=== PATIENT | female | born 1950 | race Caucasian/White ===

== ENCOUNTER 2019-04-13 07:45 | Emergency (ER) | payer MEDICARE, OTHER ==
[~2019-04-13] VITALS: Ht 160 cm; Wt 75.0 kg
[~2019-04-13 07:45] MED LIST: IBUP-1542 PO
[2019-04-13 07:48] VITALS: Ht 160 cm; Wt 75.0 kg
[2019-04-13] MEDS ORDERED: ACETAMINOPHEN 500 MG TAB PO STA (08:10)
--- NOTE | 2019-04-13 11:22 | ERD ---
ER Documentation Chief Complaint Chief Complaint right knee pain since yesterday HPI Patient is a 68-year-old female, past medical history of hypertension, pre-DM, hyperlipidemia, presents the ER for concerns of right knee pain x1 day. Patient states she was walking when she twisted her leg at her house while attempting to turn off the light. Patient states she is been unable to bear weight to the affected extremity since that time. Patient denies any previous fractures or dislocations. Patient denies fevers or chills. ROS All systems reviewed and are negative except as per history of present illness. Medications Home Meds Active Scripts Ibuprofen* (Motrin*) 600 Mg Tab, 600 MG PO Q6, #30 TAB Prov:JESUS AMOS PA-C 04/13/19 PMhx/Soc Hx Respiratory Disorders: No Hx Psychiatric Problems: No Hx Alcohol Use: No Hx Substance Use: No Hx Tobacco Use: No FmHx Family History: No diabetes Physical Exam Vitals Vital Signs Date Temp Pulse Resp B/P (MAP) Pulse Ox O2 O2 Flow FiO2 Time Delivery Rate 04/13/19 98.6 76 18 149/85 98 07:48 (106) Physical Exam GENERAL: Well-developed, well-nourished female. Appears in no acute distress. HEAD: Normocephalic, atraumatic. EYES: Pupils are equally reactive bilaterally. EOMs grossly intact. No conjunctival erythema. NECK: Supple. No meningismus. Normal range of motion of the neck. LUNG: Clear to auscultation bilaterally. No rhonchi, wheezing, rales or coarse breath sounds. HEART: Regular rate and rhythm. No murmurs, rubs or gallops. EXTREMITIES: Equal pulses bilaterally. No peripheral clubbing, cyanosis or edema. No unilateral leg swelling. NEUROLOGIC: Alert and oriented. Moving all four extremities without any difficulty. Normal speech. SKIN: Normal color. Warm and dry. No rashes or lesions. RLE: No deformity, erythema, ecchymosis. Mild swelling noted to the anterior knee. Skin intact. His range of motion of the knee secondary to pain. Sensation intact to light touch. Neurovascularly intact. (Able to plantarflex, dorsiflex, devon foot, invert foot, raise big toe.) 2+ DP and DT pulses. Results 24 hrs Current Medications Medications Dose Sig/Rich Start Time Status Last (Trade) Ordered Route PRN Stop Time Admin Dose Reason Admin 1,000 mg ONCE STAT 04/13/19 DC 04/13/19 Acetaminophen PO 08:10 08:16 (Tylenol 04/13/19 08:11 Tab) Procedures/MDM ED COURSE: The patient was stable throughout ED course. I kept the patient and/or family informed of laboratory and diagnostic imaging results throughout the ED course. DIAGNOSTIC IMAGING: Read by radiologist. Patient: DOMONIQUE MARTINS : 1950 Age: 68 Sex: F MR #: [id number] DOS: 04/13/19 0810 Ordering MD: JESUS AMOS PA-C Location: [facility] Room/Bed: PROCEDURE: XR Knee. CLINICAL INDICATION: R knee pain TECHNIQUE: AP, lateral and oblique view of the right knee were obtained. The images reviewed on a PACS workstation. COMPARISON: None. FINDINGS: No acute fracture or dislocation. Minimal tricompartmental arthrosis with tiny marginal osteophyte formations. Tiny joint effusion. IMPRESSION: Tiny joint effusion without evidence of acute fracture. Minimal degenerative joint disease. RPTAT:AAJJ Physician Sorin Date Time Electronically viewed and signed by Physician Sorin on 04/13/2019 08:36 RF/ CC: JESUS AMOS PA-C [id number] PROCEDURES: SPLINT APPLICATION: The patient was verbally consented at bedside prior to splint application. Patient was explained the risks, benefits and alternatives to this procedure. The patient was neurovascularly intact prior to and status post application of the splint. The patient tolerated the procedure well with no complications. Splint type: JESSEE wrap Extremity: RLE Indication: Tiny joint effusion without evidence of acute fracture. Minimal degenerative joint disease. MEDICAL DECISION MAKING: Patient is a 68 year-old female presents the ER for concerns of hypertension, pre-DM, hyperlipidemia who presents the right knee pain x1 day vital signs were reviewed. Patient was afebrile. Xrays showed Tiny joint effusion without evidence of acute fracture. Minimal degenerative joint disease. Jessee wrap was applied. Patient was that she will need to follow-up with an lan support specialist and outpatient management. Unable to rule any ligament or tendon injuries. Low suspicion for femur fracture, patella fracture, tibial plateau fracture, septic joint, gout, popliteal cyst, prepatellar bursitis, patellofemoral syndrome, patellar tendinitis, Killingworth-Schlatter disease, osteoarthritis, osteomyelitis, DVT or compartment syndrome. PRESCRIPTIONS: Ibuprofen DISCHARGE: At this time, patient is stable for discharge and outpatient management. RICE therapy and ROM exercises were advised to avoid stiffness. I have instructed the patient to follow-up with his/her primary care physician in 1-2 days. I have discussed with the patient the possibility of needing to see an lan support specialist for further workup and imaging if the pain persists. I have i nstructed the patient to promptly return to the ER for any new or worsening symptoms including increased pain, swelling, redness, warmth or fever. The patient and/or family expressed understanding of and agreement with this plan. All questions were answered. Home care instructions were provided. Patients blood pressure was elevated (>120/80) but appears stable without evidence of hypertensive emergency, hypertensive urgency or end-organ failure. I had discussion with the patient about the risks of hypertension. I have advised the patient to follow up with his/her primary care physician for outpatient monitoring and treatment for hypertension in 2-3 days. I have instructed the patient to return to the ER for any new or worsening symptoms including chest p ain, shortness of breath, headache, blurred vision, confusion, nausea, vomiting or LOC. Disclaimer: Inadvertent spelling and grammatical errors are likely due to EHR/dictation software use and do not reflect on the overall quality of patient care. Also, please note that the electronic time recorded on this note does not necessarily reflect the actual time of the patient encounter. Departure Diagnosis: Primary Impression: Knee pain Chronicity: acute Laterality: right Qualified Codes: M25.561 - Pain in right knee Condition: Fair Patient Instructions: Knee Pain, Uncertain Cause Referrals: [facility] (PCP) Additional Instructions: Llame al doctor LONNIE y philip valdez VENICE PARA DENTRO DE 1-2 COURTNEY.Dgale a la secretaria que nosotros le instruimos hacer esta venice.Avise o llame si alexander cond icin se empeora antes de la venice. Regresa aqui si peor o no mejor. JESUS AMOS PA-C Apr 13, 2019 11:22
== END 2019-04-13 08:57 | disposition home or self-care (01) ==
LOC: FTE 07:45
DX: M25.561 Pain in right knee (principal)
CPT/HCPCS: 73562